=== PATIENT | female | born 1935 | race Caucasian/White ===

== ENCOUNTER → 2020-02-22 | Outpatient (CLI) | payer MEDICARE, BC ==
[~2020-02-22] MED LIST: ANTIVERT25 MG PO; MULTI VITAMIN1 EACH PO; ZOFRAN ODT4 MG SUBLING
== END ==
LOC: M.RAD 14:30
PROVIDERS: ATTEND Nurse Practitioner Family
DX: M81.0 Age-related osteoporosis without current pathological fracture (principal); Z88.1 Allergy status to other antibiotic agents; Z78.0 Asymptomatic menopausal state

== ENCOUNTER 2021-03-02 10:10 | Emergency (ER) | payer MEDICARE, BC ==
[~2021-03-02] VITALS: Ht 152.4 cm; Wt 52.2 kg
[2021-03-02 12:54] VITALS: BP 170/74
== END 2021-03-02 12:54 | disposition hospice, inpatient (51) ==
LOC: M.ERS 10:10
DX: S06.309A Unspecified focal traumatic brain injury with loss of consciousness of unspecified duration, initial encounter (principal); Z79.899 Other long term (current) drug therapy; Z85.3 Personal history of malignant neoplasm of breast; Z90.710 Acquired absence of both cervix and uterus; W18.30XA Fall on same level, unspecified, initial encounter; Y93.89 Activity, other specified; Y92.89 Other specified places as the place of occurrence of the external cause; Y99.8 Other external cause status